=== PATIENT | female | born 1965 | race Caucasian/White ===

== ENCOUNTER → 2020-10-27 | Outpatient (CLI) | payer OTHER ==
--- NOTE | 2020-10-27 12:16 | XR ---
EXAMINATION TYPE: XR tibia fibula RT DATE OF EXAM: 10/27/2020 COMPARISON: None HISTORY: Lower leg pain and laceration TECHNIQUE: 2 view right tibia and fibula FINDINGS: No acute fractures or dislocations are evident. Joint spaces as visualized are normal. No j oint effusion is identified. Small calcifications anterior within the soft tissues of the anterior brady. Radiopaque foreign bodies are not otherwise evident. IMPRESSION: 1. No acute osseous abnormality. 2. Some anterior skin calcifications appear to be present within the distal third of the anterior hemanth n soft tissues. Radiopaque foreign body is not otherwise evident.
--- NOTE | 2020-10-27 13:15 | US ---
EXAMINATION TYPE: US venous doppler duplex LE RT DATE OF EXAM: 10/27/2020 12:58 PM COMPARISON: NONE CLINICAL HISTORY: S80.11XA Contusion, S81.801A open wound rt low leg. Swelling, injury. Open wound lo wer right leg. No hx of DVT. Patient does not take thinners. SIDE PERFORMED: Right TECHNIQUE: The lower extremity deep venous system is examined utilizing real time linear array sonog billie with graded compression, doppler sonography and color-flow sonography. VESSELS IMAGED: Common Femoral Vein Deep Femoral Vein Greater Saphenous Vein * Femoral Vein Popliteal Vein Small Saphenous Vein * Proximal Calf Veins (* superficial vessels) Right Leg: No evidence of DVT in veins imaged at this time. Hypoechoic area with hyperechoic area seen within the right groin: 1.8 x 2.3 x 0.7 cm. IMPRESSION: 1. Right lower extremity ultrasound negative for deep venous thrombosis. 2. Right inguinal lymph node
== END | disposition home or self-care (01) ==
LOC: RADXRMAIN 11:47
PROVIDERS: ATTEND Emergency Medicine
DX: M79.605 Pain in left leg (principal); L98.8 Other specified disorders of the skin and subcutaneous tissue